=== PATIENT | female | born 1950 | race Caucasian/White ===

== ENCOUNTER 2023-10-18 18:12 | Emergency (ER) | payer MEDICARE, SELFPAY ==
[2023-10-18 18:12] VITALS: BP 141/62; PULSE 79; RESP 16; TEMP 36.6; O2SAT 100; BMI 25.7
--- NOTE | 2023-10-18 18:34 | XRR_ITS ---
PROCEDURE INFORMATION: Exam: XR Chest Exam date and time: 10/18/2023 6:47 PM Age: 73 years old Clinical indication: Injury or trauma; Fall; Blunt trauma (contusions or hematomas); Prior surgery; Surgery date: 6+ months; Surgery type: Breast implants TECHNIQUE: Imaging protocol: Radiologic exam of the chest. Views: 1 view. COMPARISON: No relevant prior studies available. FINDINGS: Lungs: No focal consolidation. Pleural spaces: No evidence of pneumothorax. No evidence of pleural effusion. Heart/Mediastinum: Cardiomediastinal silhouette is within normal limits. Bones/joints: Comminuted displaced proximal humeral fracture on the right. XR/XR chest 1V portable [id number] IMPRESSION: 1. No acute cardiopulmonary abnormality. 2. Comminuted displaced proximal humeral fracture on the right.
--- NOTE | 2023-10-18 18:34 | XRR_ITS ---
PROCEDURE INFORMATION: Exam: XR Right Shoulder Exam date and time: 10/18/2023 6:49 PM Age: 73 years old Clinical indication: Injury or trauma; Fall; Blunt trauma (contusions or hematomas); Shoulder; Right; Additional info: Fall injury TECHNIQUE: Imaging protocol: Radiologic exam of the right shoulder. Views: 2 or more views. COMPARISON: CR (CHEST, ) 10/18/2023 6:47 PM FINDINGS: Bones/joints: Comminuted displaced proximal humeral fracture on the right. Humeral head remains grossly seated within the glenoid fossa. 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 Soft tissues: No gross soft tissue abnormality. XR/XR shoulder RT min 2V* [id number] IMPRESSION: 1. Comminuted displaced proximal humeral fracture.
--- NOTE | 2023-10-18 18:34 | XRR_ITS ---
PROCEDURE INFORMATION: Exam: XR Right Elbow Exam date and time: 10/18/2023 6:53 PM Age: 73 years old Clinical indication: Injury or trauma; Fall; Blunt trauma (contusions or hematomas); Elbow; Right; Additional info: Fall injury TECHNIQUE: Imaging protocol: Radiologic exam of the right elbow. Views: 3 or more views. COMPARISON: CR (CHEST, ) 10/18/2023 6:49 PM FINDINGS: Bones/joints: No evidence of fracture or subluxation. No evidence of joint effusion. Radiocapitellar alignment is maintained. Soft tissues: Grossly unremarkable. XR/XR elbow RT min 3V* [id number] IMPRESSION: 1. No evidence of fracture or subluxation.
--- NOTE | 2023-10-18 18:37 | ED_ITS ---
HPI - Extremity Injury (Upper) General: Stated Complaint: Rt shoulder inj Time Seen by Provider: 10/18/23 18:32 History of Present Illness: Patient tripped and fell this evening landing on her right side. Patient has pain to the right shoulder area. Patient has abrasion to her right elbow. Patient denies any head injury or loss of consciousness. No severe injury is noted. Review of Systems General: Reports: 10 or more systems reviewed and unremarkable except in HPI and below Physical Exam Const: COMMON NORMALS: alert HENMT: COMMON NORMALS: normocephalic HEAD & SCALP: normocephalic MOUTH: Normal oral and palatal mucosa present Neck/C-Spine: COMMON NORMALS: full ROM CERVICAL SPINE: No Cervical spine t enderness Chest: CHEST: No tenderness Resp: COMMON NORMALS: normal respiratory effort and clear to auscultation bilaterally AUSCULTATION: clear to auscultation bilaterally Cardio: COMMON NORMALS: regular rate and regular rhythm RATE: regular rate RHYTHM: regular rhythm GI: COMMON NORMALS: Soft to palpation and non-tender PALPATION: Yes Soft to palpation Back/Pelvis: COMMON NORMALS: thoracic and lumbar spine normal to inspection Extremity: RIGHT UPPER EXTREMITY: Yes shoulder joint (Lateral and anterior tenderness) Right shoulder: Yes Right shoulder joint ROM exam (Decreased range of motion due to pain) and Yes elbow joint (Posterior abrasion, no joint line tenderness) Neuro: SENSORIUM/ORIENTATION: Yes alert Skin: TRAUMA: abrasion (Right elbow) Course Vital Signs: Vital signs: Vital Signs Temperature 97.8 F 10/18/23 18:12 Pulse Rate 79 10/18/23 18:12 Respiratory Rate 16 10/18/23 18:12 Blood Pressure 141/62 10/18/23 18:12 Pulse Oximetry 100 10/18/23 18:12 Oxygen Delivery Me thod Room Air 10/18/23 18:12 MDM - Extremity Injury (Upper) Medical Decision Making Patient comes in today for injury to the right shoulder. On exam patient has no abrasion to the right elbow area. Patient has tenderness to the right shoulder. Differential diagnosis proximal humeral fracture, dislocation of the shoulder, rotator cuff injury, contusion. Patient has a impacted fracture to the right proximal humerus. No fractures are noted in the elbow area. Patient was placed in a sling. Patient was given medications for pain. Case management was instructed to help patient follow-up with orthopedics. Patient and family both reported understanding and agreed to plan. XR interpretation done by ED provider, pending radiology final review Discharge Plan Discharge Patient Disposition: Home Clinical Impression: Fracture of proximal humerus Qualifiers: Encounter type: initial encounter Fracture type: closed Fracture morphology: unspecified fracture morphology Laterality: right Qualified Code(s): S42.201A - Unspecified fracture of upper end of right humerus, initial encounter for closed fracture Condition: Stable Prescriptions: New hydrocodone-acetaminophen 5-325 mg tablet 1 tab PO Q6H PRN (Reason: pain) Qty: 12 0RF Rx Instructions: dx humeral fracture Discharge Orders: Discharge ED (Routine); Ordered 10/18/23 Ordered By: Benjamin Mohamud Discharge Diet: Usual diet Discharge Activity: Limit activity as instructed Patient Instructions: Arm Fracture in Adults (DC), Opioid Safety, Pain Management Activity Restrictions/Additional Instructions: Keep sling in place for protection of fracture. Use pillows to help support. You may use acetaminophen or ibuprofen to help with pain. Use hydrocodone for severe pain. Case management will contact you regarding follow-up with orthopedics. You are welcome to follow-up with your own adapted physical education specialist if needed. Return to ER for new concerns. Coding Level of Care Code ED Charter Driver for Sapna Huynh
--- NOTE | 2023-10-18 19:33 | PC.NURSE ---
Per Bernabe Mohamud CREDIT CONSULTANT- send 2 tabs Hydrocodone/ apap with patient. Witnessed with Kerry ordonez. Discussed with patient, placed in bag and attached to d/c pk.
[2023-10-18 19:40] VITALS: RESP 16
--- NOTE | 2023-10-19 06:57 | DCPLANNER ---
message sent to ortho for er f/u
== END 2023-10-18 19:42 | disposition home or self-care (01) ==
PROVIDERS: Emergency Provider Nurse Practitioner Family
DX: S42.201A Unspecified fracture of upper end of right humerus, initial encounter for closed fracture (principal); S50.311A Abrasion of right elbow, initial encounter; W01.0XXA Fall on same level from slipping, tripping and stumbling without subsequent striking against object, initial encounter
CPT/HCPCS: 71045; 73030; 73080; 99284

== ENCOUNTER → 2023-11-20 10:28 | Outpatient (BNVA) | payer MEDICARE, SELFPAY | PROVIDERS: Visit Provider Nurse Practitioner | DX: S42.201D Unspecified fracture of upper end of right humerus, subsequent encounter for fracture with routine healing (principal); W19.XXXD Unspecified fall, subsequent encounter | CPT/HCPCS: 73030; 99024 ==

== ENCOUNTER → 2023-12-14 09:18 | Outpatient (BNVA) | payer MEDICARE, SELFPAY | PROVIDERS: Visit Provider Nurse Practitioner | DX: S42.201D Unspecified fracture of upper end of right humerus, subsequent encounter for fracture with routine healing; W19.XXXD Unspecified fall, subsequent encounter | CPT/HCPCS: 73030; 99213 ==